=== PATIENT | male | born 1950 | race Caucasian/White ===

== ENCOUNTER 2018-08-07 16:46 | Inpatient (IN) | payer MEDICARE, OTHER | END 2018-08-11 19:30 | disposition home or self-care (01) | LOC: ER 16:46 → SUR 3N 08-08 16:28 → PCU 3S 08-08 21:18 | PROC: 0DB58ZX Excision of Esophagus, Via Natural or Artificial Opening Endoscopic, Diagnostic (ICD-10-PCS; principal; ~2018-08-07) | DX: C15.9 Malignant neoplasm of esophagus, unspecified (principal); I16.1 Hypertensive emergency; C78.1 Secondary malignant neoplasm of mediastinum; J90 Pleural effusion, not elsewhere classified; E87.6 Hypokalemia; K29.70 Gastritis, unspecified, without bleeding; I71.4 Abdominal aortic aneurysm, without rupture; R59.0 Localized enlarged lymph nodes ==